=== PATIENT | female | born 1975 ===

== ENCOUNTER 2020-06-21 06:53 | Day surgery (SDC) | payer OTHER ==
[~2020-06-21 06:53] MED LIST: IBUPRO PO
== END 2020-06-21 16:15 | disposition home or self-care (01) ==
LOC: CIR.AMB 06:53
PROVIDERS: ATTEND Colon & Rectal Surgery
DX: K64.4 Residual hemorrhoidal skin tags (principal); K64.8 Other hemorrhoids; Z20.822 Contact with and (suspected) exposure to COVID-19